=== PATIENT | male | born 1925 | race Caucasian/White ===

== ENCOUNTER 2016-04-18 14:14 | Outpatient (CLI) | payer MEDICARE, BC | END 2016-04-18 14:15 | disposition home or self-care (01) | DX: I26.99 Other pulmonary embolism without acute cor pulmonale (principal); Z79.01 Long term (current) use of anticoagulants ==

== ENCOUNTER 2016-05-16 13:56 | Outpatient (CLI) | payer MEDICARE, BC | END 2016-05-16 13:57 | disposition home or self-care (01) | DX: I26.99 Other pulmonary embolism without acute cor pulmonale (principal); Z79.01 Long term (current) use of anticoagulants ==

== ENCOUNTER 2016-06-13 13:21 | Outpatient (CLI) | payer MEDICARE, BC | END 2016-06-13 13:22 | disposition home or self-care (01) | DX: I26.99 Other pulmonary embolism without acute cor pulmonale (principal); Z79.01 Long term (current) use of anticoagulants ==

== ENCOUNTER 2016-07-11 14:49 | Outpatient (CLI) | payer MEDICARE, BC | END 2016-07-11 14:50 | disposition home or self-care (01) | DX: Z79.01 Long term (current) use of anticoagulants (principal); I26.99 Other pulmonary embolism without acute cor pulmonale; C61 Malignant neoplasm of prostate; E78.2 Mixed hyperlipidemia; Z79.899 Other long term (current) drug therapy; I10 Essential (primary) hypertension ==

== ENCOUNTER 2016-07-20 08:00 | Outpatient (CLI) | payer MEDICARE, BC | END 2016-07-20 08:01 | disposition home or self-care (01) | DX: I10 Essential (primary) hypertension (principal); E78.2 Mixed hyperlipidemia; Z79.899 Other long term (current) drug therapy | CPT/HCPCS: 36415; 80053; 80061; 85025; G0103 ==

== ENCOUNTER 2016-08-08 14:21 | Outpatient (CLI) | payer MEDICARE, BC | END 2016-08-08 14:22 | disposition home or self-care (01) | DX: I26.99 Other pulmonary embolism without acute cor pulmonale (principal); Z79.01 Long term (current) use of anticoagulants ==

== ENCOUNTER 2016-09-06 13:56 | Outpatient (CLI) | payer MEDICARE, BC | END 2016-09-06 13:57 | disposition home or self-care (01) | LOC: LAB.F 13:56 | PROVIDERS: ATTEND Internal Medicine | DX: Z79.01 Long term (current) use of anticoagulants (principal) | CPT/HCPCS: 85610 ==

== ENCOUNTER 2016-10-03 15:28 | Outpatient (CLI) | payer MEDICARE, BC | END 2016-10-03 15:29 | disposition home or self-care (01) | LOC: LAB.F 15:28 | PROVIDERS: ATTEND Internal Medicine | DX: Z79.01 Long term (current) use of anticoagulants (principal) | CPT/HCPCS: 85610 ==

== ENCOUNTER 2016-11-01 13:41 | Outpatient (CLI) | payer MEDICARE, BC | END 2016-11-01 13:42 | disposition home or self-care (01) | LOC: LAB.F 13:41 | PROVIDERS: ATTEND Internal Medicine | DX: Z79.01 Long term (current) use of anticoagulants (principal) | CPT/HCPCS: 85610 ==

== ENCOUNTER 2016-11-14 14:33 | Outpatient (CLI) | payer MEDICARE, BC | END 2016-11-14 14:34 | disposition home or self-care (01) | LOC: LAB.F 14:33 | PROVIDERS: ATTEND Internal Medicine | DX: Z79.01 Long term (current) use of anticoagulants (principal); I26.99 Other pulmonary embolism without acute cor pulmonale | CPT/HCPCS: 85610 ==

== ENCOUNTER 2016-11-28 11:00 | Outpatient (CLI) | payer MEDICARE, BC | END 2016-11-28 11:01 | disposition home or self-care (01) | LOC: LAB.F 11:00 | PROVIDERS: ATTEND Internal Medicine | DX: Z79.01 Long term (current) use of anticoagulants (principal); I26.99 Other pulmonary embolism without acute cor pulmonale | CPT/HCPCS: 85610 ==

== ENCOUNTER 2016-12-17 09:22 | Outpatient (CLI) | payer MEDICARE, BC ==
[2016-12-17 18:56] LABS: CALCIUM 9.2 mg/dL (8.5-10.3); CREATININE 1.4 mg/dL (0.6-1.2); POTASSIUM 4.7 mmol/L (3.5-5.0)
== END 2016-12-17 09:23 | disposition home or self-care (01) ==
LOC: LAB.F 09:22
PROVIDERS: ATTEND Internal Medicine
DX: Z79.01 Long term (current) use of anticoagulants (principal); I26.99 Other pulmonary embolism without acute cor pulmonale
CPT/HCPCS: 36415; 80048; 85610

== ENCOUNTER 2017-01-16 09:25 | Outpatient (CLI) | payer MEDICARE, BC | END 2017-01-16 09:26 | disposition home or self-care (01) | LOC: LAB.F 09:25 | PROVIDERS: ATTEND Internal Medicine | DX: Z79.01 Long term (current) use of anticoagulants (principal); I26.99 Other pulmonary embolism without acute cor pulmonale | CPT/HCPCS: 85610 ==

== ENCOUNTER 2017-02-13 10:52 | Outpatient (CLI) | payer MEDICARE, BC | END 2017-02-13 10:53 | disposition home or self-care (01) | LOC: LAB.F 10:52 | PROVIDERS: ATTEND Internal Medicine | DX: Z79.01 Long term (current) use of anticoagulants (principal); I26.99 Other pulmonary embolism without acute cor pulmonale | CPT/HCPCS: 85610 ==

== ENCOUNTER 2017-03-12 14:08 | Outpatient (CLI) | payer MEDICARE, BC | END 2017-03-12 14:09 | disposition home or self-care (01) | LOC: LAB.F 14:08 | PROVIDERS: ATTEND Internal Medicine | DX: Z79.01 Long term (current) use of anticoagulants (principal); I26.99 Other pulmonary embolism without acute cor pulmonale | CPT/HCPCS: 85610 ==

== ENCOUNTER 2017-03-27 14:19 | Outpatient (CLI) | payer MEDICARE, BC | END 2017-03-27 14:20 | disposition home or self-care (01) | LOC: LAB.F 14:19 | PROVIDERS: ATTEND Internal Medicine | DX: Z79.01 Long term (current) use of anticoagulants (principal); I26.99 Other pulmonary embolism without acute cor pulmonale | CPT/HCPCS: 85610 ==

== ENCOUNTER 2017-04-10 14:02 | Outpatient (CLI) | payer MEDICARE, BC | END 2017-04-10 14:03 | disposition home or self-care (01) | LOC: LAB.F 14:02 | PROVIDERS: ATTEND Internal Medicine | DX: Z79.01 Long term (current) use of anticoagulants (principal); I26.99 Other pulmonary embolism without acute cor pulmonale | CPT/HCPCS: 85610 ==

== ENCOUNTER 2017-04-24 10:47 | Outpatient (CLI) | payer MEDICARE, BC | END 2017-04-24 10:48 | disposition home or self-care (01) | LOC: LAB.F 10:47 | PROVIDERS: ATTEND Internal Medicine | DX: Z79.01 Long term (current) use of anticoagulants (principal); I26.99 Other pulmonary embolism without acute cor pulmonale | CPT/HCPCS: 85610 ==

== ENCOUNTER 2017-05-22 13:47 | Outpatient (CLI) | payer MEDICARE, BC | END 2017-05-22 13:48 | disposition home or self-care (01) | LOC: LAB.F 13:47 | PROVIDERS: ATTEND Internal Medicine | DX: I26.99 Other pulmonary embolism without acute cor pulmonale (principal); Z79.01 Long term (current) use of anticoagulants | CPT/HCPCS: 85610 ==

== ENCOUNTER 2017-06-05 10:18 | Outpatient (CLI) | payer MEDICARE, BC | END 2017-06-05 10:19 | disposition home or self-care (01) | LOC: LAB.F 10:18 | PROVIDERS: ATTEND Internal Medicine | DX: Z79.01 Long term (current) use of anticoagulants (principal); I26.99 Other pulmonary embolism without acute cor pulmonale | CPT/HCPCS: 85610 ==

== ENCOUNTER 2017-06-18 09:50 | Outpatient (CLI) | payer MEDICARE, BC | END 2017-06-18 09:51 | disposition home or self-care (01) | LOC: LAB.F 09:50 | PROVIDERS: ATTEND Internal Medicine | DX: I26.99 Other pulmonary embolism without acute cor pulmonale (principal); Z79.01 Long term (current) use of anticoagulants | CPT/HCPCS: 85610 ==

== ENCOUNTER 2017-06-25 15:06 | Outpatient (CLI) | payer MEDICARE, BC ==
--- NOTE | 2017-06-25 17:25 | XRAY Report ---
CHEST, TWO VIEWS: 06/25/2017 HISTORY: Cough, bibasilar rales. COMPARISON: 12/08/2016. FINDINGS: The heart size is normal. There is boscillation of the right hemidiaphragm. The lungs are clear. No pleural effusion or pneumothorax. Age-related changes in the spine. IMPRESSION: STABLE X-RAY COMPARED WITH 05/03/2015. CLEAR LUNGS. TD: 06/25/2017 17:24 [facility]
== END 2017-06-25 15:07 | disposition home or self-care (01) ==
LOC: DI 15:06
PROVIDERS: ATTEND Nurse Practitioner Primary Care
DX: J06.9 Acute upper respiratory infection, unspecified (principal)
CPT/HCPCS: 71046

== ENCOUNTER 2017-07-18 09:30 | Outpatient (CLI) | payer MEDICARE, BC | END 2017-07-18 09:31 | disposition home or self-care (01) | LOC: LAB.F 09:30 | PROVIDERS: ATTEND Internal Medicine | DX: Z79.01 Long term (current) use of anticoagulants (principal); I26.99 Other pulmonary embolism without acute cor pulmonale | CPT/HCPCS: 85610 ==

== ENCOUNTER 2017-07-31 10:51 | Outpatient (CLI) | payer MEDICARE, BC | END 2017-07-31 10:52 | disposition home or self-care (01) | LOC: LAB.F 10:51 | PROVIDERS: ATTEND Internal Medicine | DX: Z79.01 Long term (current) use of anticoagulants (principal); I26.99 Other pulmonary embolism without acute cor pulmonale | CPT/HCPCS: 85610 ==

== ENCOUNTER 2017-08-14 10:32 | Outpatient (CLI) | payer MEDICARE, BC | END 2017-08-14 10:33 | disposition home or self-care (01) | LOC: LAB.F 10:32 | PROVIDERS: ATTEND Internal Medicine | DX: I26.99 Other pulmonary embolism without acute cor pulmonale (principal); Z79.01 Long term (current) use of anticoagulants | CPT/HCPCS: 85610 ==

== ENCOUNTER 2017-08-28 09:29 | Outpatient (CLI) | payer MEDICARE, BC ==
[2017-08-28 18:01] LABS: BASOPHILS # (AUTO) 0.1 10^3/uL (0.0-0.1); BASOPHILS % (AUTO) 1.1 %; EOSINOPHILS # (AUTO) 0.3 10^3/uL (0.0-0.7); EOSINOPHILS % (AUTO) 4.4 %; HGB - HEMOGLOBIN 12.1 g/dL (14.0-18.0); LYMPHOCYTES # (AUTO) 1.2 10^3/uL (1.5-3.5); LYMPHOCYTES % (AUTO) 17.9 %; MEAN CORPUSCULAR HEMOGLOBIN 30.9 pg (27.0-31.0); MEAN CORPUSCULAR HGB CONC 33.2 g/dL (32.0-36.0); MEAN CORPUSCULAR VOLUME 92.9 fL (80.0-94.0); MEAN PLATELET VOLUME 9.5 fL (7.4-11.4); MONOCYTES # (AUTO) 0.7 10^3/uL (0.0-1.0); MONOCYTES % (AUTO) 9.9 %; NEUTROPHILS # (AUTO) 4.4 10^3/uL (1.5-6.6); NEUTROPHILS % (AUTO) 66.7 %; PLT - PLATELET COUNT 164 10^3/uL (130-450); RED BLOOD COUNT 3.92 10^6/uL (4.70-6.10); RED CELL DISTRIBUTION WIDTH 13.1 % (12.0-15.0); WHITE BLOOD COUNT 6.6 x10^3/uL (4.8-10.8)
[2017-08-28 18:36] LABS: ALBUMIN 3.7 g/dL (3.2-5.5); ALBUMIN/GLOBULIN RATIO 1.2 (1.0-2.2); ALKALINE PHOSPHATASE 41 IU/L (42-121); ALT ALANINE AMINOTRANSFERASE 26 IU/L (10-60); AST ASPARTATE AMINOTRANSFERASE 28 IU/L (10-42); BILIRUBIN,TOTAL 0.5 mg/dL (0.2-1.0); BUN - BLOOD UREA NITROGEN 38 mg/dL (6-20); CARBON DIOXIDE - CO2 25 mmol/L (21-32); CHLORIDE 106 mmol/L (101-111); CHOL/HDL RATIO 3.4 (<5.0); CHOLESTEROL 143 mg/dL; CREATININE 1.5 mg/dL (0.6-1.2); GFR - MDRD 44 (>89); GLUCOSE 90 mg/dL (70-100); HDL CHOLESTEROL 42 mg/dL; LDL CHOLESTEROL,CALCULATED 80 mg/dL; LDL/HDL RATIO 1.9 (<3.6); SODIUM 137 mmol/L (135-145); TOTAL PROTEIN 6.7 g/dL (6.7-8.2); VLDL CHOLESTEROL 21 mg/dL
== END 2017-08-28 09:30 | disposition home or self-care (01) ==
LOC: LAB.F 09:29
PROVIDERS: ATTEND Internal Medicine
DX: C61 Malignant neoplasm of prostate (principal); N18.9 Chronic kidney disease, unspecified; I25.10 Atherosclerotic heart disease of native coronary artery without angina pectoris; I26.99 Other pulmonary embolism without acute cor pulmonale; Z79.899 Other long term (current) drug therapy; Z79.01 Long term (current) use of anticoagulants
CPT/HCPCS: 36415; 80053; 80061; 83721; 84153; 85025; 85610

== ENCOUNTER 2017-09-11 13:55 | Outpatient (CLI) | payer MEDICARE, BC | END 2017-09-11 13:56 | disposition home or self-care (01) | LOC: LAB.F 13:55 | PROVIDERS: ATTEND Internal Medicine | DX: I26.99 Other pulmonary embolism without acute cor pulmonale (principal); Z79.01 Long term (current) use of anticoagulants | CPT/HCPCS: 85610 ==

== ENCOUNTER 2017-09-26 14:18 | Outpatient (CLI) | payer MEDICARE, BC | END 2017-09-26 14:19 | disposition home or self-care (01) | LOC: LAB.F 14:18 | PROVIDERS: ATTEND Internal Medicine | DX: Z79.01 Long term (current) use of anticoagulants (principal); I26.99 Other pulmonary embolism without acute cor pulmonale | CPT/HCPCS: 85610 ==

== ENCOUNTER 2017-10-23 13:18 | Outpatient (CLI) | payer MEDICARE, BC | END 2017-10-23 13:19 | disposition home or self-care (01) | LOC: LAB.F 13:18 | PROVIDERS: ATTEND Dermatology MOHS-Micrographic Surgery | DX: Z79.01 Long term (current) use of anticoagulants (principal); I26.99 Other pulmonary embolism without acute cor pulmonale | CPT/HCPCS: 85610 ==